=== PATIENT | female | born 1960 ===

== ENCOUNTER 2017-10-06 11:00 | Inpatient (IN) | payer OTHER ==
[~2017-10-06] VITALS: Ht 170.2 cm; Wt 86.2 kg
[2017-10-06] MEDS ORDERED: COZAAR100 MG PO (12:24)
[2017-10-06] MEDS ORDERED: DILTIAZEM IV (12:25)
[2017-10-06] MEDS ORDERED: NEURONTIN300 MG PO (12:25)
[2017-10-06] MEDS ORDERED: VITAMIN B-650 MG PO (12:26)
[2017-10-06] MEDS ORDERED: HUMALOG MI100 UNIT/1 (12:26)
[2017-10-17] MEDS ORDERED: PERCOCET 5-3251 EACH PO (09:00)
[2017-10-17] MEDS ORDERED: INTEGRA F CAPS1 EACH PO (09:00)
[2017-10-17] MEDS ORDERED: VITAMIN B-12500 MC3 SL (09:00)
[2017-10-17] MEDS ORDERED: QUESTRAN PACKET4 GM PO (09:00)
[2017-10-17] MEDS ORDERED: OMEPRAZOLE20 MG PO (09:00)
== END 2017-10-17 09:47 | disposition home or self-care (01) | DRG 330 ==
LOC: O/R 10-13 06:00 → SURH 10-13 07:00 → SURG 10-13 15:24
PROVIDERS: Surgery
PROC: 0DQB0ZZ Repair Ileum, Open Approach (ICD-10-PCS; 2017-10-13)
PROC: 0DNW0ZZ Release Peritoneum, Open Approach (ICD-10-PCS; 2017-10-13)
PROC: 0DJD8ZZ Inspection of Lower Intestinal Tract, Via Natural or Artificial Opening Endoscopic (ICD-10-PCS; 2017-10-13)
PROC: 0DTE0ZZ Resection of Large Intestine, Open Approach (ICD-10-PCS; principal; 2017-10-13 07:00)
DX: Z43.2 Encounter for attention to ileostomy (principal); C18.4 Malignant neoplasm of transverse colon; D62 Acute posthemorrhagic anemia; G47.33 Obstructive sleep apnea (adult) (pediatric); E11.9 Type 2 diabetes mellitus without complications; E66.8 Other obesity